=== PATIENT | male | born 1945 | race Asian ===

== ENCOUNTER → 2018-04-16 | Outpatient (CLI) | payer MEDICARE, OTHER | END | disposition home or self-care (01) | LOC: RAD 10:35 | PROVIDERS: ATTEND Family Medicine | DX: M25.551 Pain in right hip (principal) ==

== ENCOUNTER 2019-02-21 20:10 | Inpatient (IN) | payer MEDICARE, OTHER ==
[2019-02-20] MEDS: URSODIOL 300 MG CAPSULE PO SCH (23:40)
[~2019-02-21] VITALS: Ht 165.1 cm; Wt 79.9 kg
[2019-02-21] MEDS ORDERED: SODIUM CHLORIDE FLUSH 10ML SYR IVF ONE (21:00)
[2019-02-21] MEDS ORDERED: ACETAMINOPHEN 500 MG TABLET PO ONE (21:00)
[2019-02-21] MEDS ORDERED: SODIUM CHLORIDE 0.9% 1,000ML IVBOLUS ONE ×2 (21:00→22:00)
--- NOTE | 2019-02-21 21:00 | NUR ---
PT BIB FAMILY FOR 2 WEEK HX OF NONPRODUCTIVE COUGH AND FEVERS FOR UNKOWN AMOUNT OF TIME. PT HAS HX OF LIVER TRANSPLANT 3 YEARS AGO AND IS ON IMMUNOSUPRESSANTS. PT DENIES ABD PAIN, N/V/D, OR DYSURAI. PT ON MONITOR AND LABS DRAWN. REPORT TO QUIRINO Carrion RN.
[2019-02-21] MEDS ORDERED: ACETAMINOPHEN 500 MG TABLET ONE ×2 (21:07→21:41)
[2019-02-21 21:22] LABS: BASOPHILS # (AUTO) 0.02 x10^3/uL (0-0.1); BASOPHILS % (AUTO) 0 % (0-1); EOSINOPHILS # (AUTO) 0.01 x10^3/uL (0-0.4); EOSINOPHILS % (AUTO) 0 % (1-7); LYMPHOCYTES # (AUTO) 1.26 x10^3/uL (1-3.4); LYMPHOCYTES % (AUTO) 18 % (22-44); MD NO; MEAN CORPUSCULAR HEMOGLOBIN 24.5 pg (27.5-34.5); MEAN CORPUSCULAR HGB CONC 32.8 g/dL (33.2-36.2); MEAN CORPUSCULAR VOLUME 74.7 fL (81-97); MEAN PLATELET VOLUME 7.9 fL (7.4-10.4); MONOCYTES % (AUTO) 10 % (2-9); NEUTROPHILS # (AUTO) 5.19 x10^3/uL (1.8-6.8); NEUTROPHILS % (AUTO) 72 % (42-75); PLATELET COUNT 354 x10^3/uL (130-400); RED BLOOD COUNT 5.32 x10^6/uL (4.38-5.82); RED CELL DISTRIBUTION WIDTH 17.7 % (9.4-14.8)
[2019-02-21 21:26] LABS: INTERNATIONAL NORMALIZED RATIO 1.09 (0.93-1.1); PROTHROMBIN TIME 11.4 Seconds (9.6-11.5)
[2019-02-21 21:27] LABS: ALANINE AMINOTRANSFERASE 24 U/L (12-78); ALBUMIN 3.3 g/dL (3.4-5.0); ANION GAP 10 mmol/L (5-15); CALCIUM 8.4 mg/dL (8.5-10.1); CHLORIDE 101 mmol/L (98-107); CREATININE 1.71 mg/dL (0.7-1.3)
[2019-02-21 21:29] LABS: ALKALINE PHOSPHATASE 91 U/L (45-117); BILIRUBIN,TOTAL 1.4 mg/dL (0.2-1.0); TOTAL PROTEIN 8.2 g/dL (6.4-8.2)
[2019-02-21] MEDS ORDERED: CEFTRIAXONE PMX 1GM/50ML 50 ML IVPB ONE (21:30)
[2019-02-21] MEDS ORDERED: AZITHROMYCIN 500 MG in SODIUM CHLORIDE 0.9% 250 ML IVPB ONE (21:30)
[2019-02-21] MEDS ORDERED: OMEP-110 PO (21:32)
[2019-02-21] MEDS ORDERED: URSO300C27 PO (21:32)
[2019-02-21] MEDS ORDERED: CYAN100014 PO (21:32)
[2019-02-21] MEDS ORDERED: FINA5TAB4 PO (21:32)
[2019-02-21] MEDS ORDERED: GLUC1KIT SQ (21:32)
[2019-02-21] MEDS ORDERED: INSU100V8 SQ (21:32)
[2019-02-21] MEDS ORDERED: COLE1TAB2 PO (21:32)
[2019-02-21] MEDS ORDERED: CHOL500015 PO (21:32)
[2019-02-21] MEDS ORDERED: INSU100C SQ-INSULIN (21:32)
[2019-02-21] MEDS ORDERED: PREVAGEN PO (21:32)
[2019-02-21] MEDS ORDERED: CETI10TA24 PO (21:32)
[2019-02-21] MEDS ORDERED: ACET-1600 PO (21:32)
[2019-02-21] MEDS ORDERED: TACR0.5C4 PO (21:32)
[2019-02-21] MEDS ORDERED: MAGN500T PO (21:32)
[2019-02-21] MEDS ORDERED: PRED2.5T PO (21:32)
[2019-02-21] MEDS ORDERED: RESV250C2 PO (21:32)
[2019-02-21] MEDS ORDERED: ATOR20TA PO (21:32)
[2019-02-21] MEDS ORDERED: CEFTRIAXONE PMX 1GM/50ML 50 ML ONE (21:41)
--- NOTE | 2019-02-21 21:48 | NUR ---
Pt ambulated to bathroom, urine sample cup in hand.
--- NOTE | 2019-02-21 22:00 | NUR ---
IV ABX started, 2nd liter of NS started. Pt's urine sent to lab.
--- NOTE | 2019-02-21 22:04 | NUR ---
Telephone SBAR report given to RNKayla. Pt, , and son at bedside made aware of new room assignment.
[2019-02-21 22:11] LABS: MICROSCOPIC AUTO
[2019-02-21 22:16] LABS: CULTURE INDICATED? NO
[2019-02-21] MEDS ORDERED: VANCOMYCIN PMX 1GM/200ML 200 ML IV ONE (22:30)
[2019-02-21] MEDS ORDERED: DOCUSATE 100 MG CAPSULE PO PRN (22:30)
[2019-02-21] MEDS ORDERED: POLYETHYLENE GLYCOL 17 GM PACKET PO PRN (22:30)
[2019-02-21] MEDS ORDERED: morphine SULFATE 10 MG/ML, 1ML IVPush PRN (22:30)
[2019-02-21] MEDS ORDERED: OXYcodone IR 5MG TABLET PO PRN (22:30)
[2019-02-21] MEDS ORDERED: hydrALAzine 20 MG/ML, 1ML IVPush PRN (22:30)
[2019-02-21] MEDS ORDERED: VANCOMYCIN PER PHARMACY MC PRN (22:30)
[2019-02-21] MEDS ORDERED: ONDANSETRON ODT 4 MG PO PRN (22:30)
[2019-02-21] MEDS ORDERED: PROMETHAZINE 25 MG/ML, 1ML IM PRN (22:30)
[2019-02-21] MEDS ORDERED: BISACODYL 10 MG SUPP PR PRN (22:30)
[2019-02-21] MEDS ORDERED: ONDANSETRON 2MG/ML, 2ML IVPush PRN (22:30)
[2019-02-21 22:38] VITALS: BP 103/63
[2019-02-21 22:56] LABS: FREE T4 (FREE THYROXINE) 1.57 ng/dL (0.76-1.46); THYROID STIMULATING HORMONE 0.985 mIU/L (0.358-3.740)
[2019-02-21 23:04] LABS: HEMOGLOBIN A1C 6.4 % (4.2-6.3)
[2019-02-21] MEDS ORDERED: VANCOMYCIN 1,600 MG in SODIUM CHLORIDE 0.9% 250 ML IV ONE (23:30)
[2019-02-21] MEDS ORDERED: PHARMACOKINETIC MONITORING MC PRN (23:30)
[2019-02-21] MEDS: PIPERACILLIN/TAZO/PMX 3.375GM 50 ML IV SCH (23:40)
[2019-02-21] MEDS: MAGNESIUM OXIDE 400 MG TABLET PO SCH (23:40)
[2019-02-21] MEDS: ENOXAPARIN 40 MG/0.4 ML SQ SCH (23:40)
[2019-02-21] MEDS: URSODIOL 300 MG CAPSULE PO SCH (23:40)
[2019-02-21] MEDS: SODIUM CHLORIDE 0.9% 1,000 ML IV SCH (23:40)
[2019-02-21] MEDS: COLESTIPOL 1 GM TABLET PO SCH (23:40)
[2019-02-21] MEDS: ATORVASTATIN 20 MG TABLET PO SCH (23:40)
[2019-02-21] MEDS: TACROLIMUS 0.5 MG CAPSULE PO SCH (23:40)
[2019-02-21] MEDS: INSULIN GLARGINE 100 UNITS/ML, PEN SQ-INSULIN SCH (23:41)
[2019-02-22 00:42] LABS: RAPID INFLUENZA A Negative (Negative); RAPID INFLUENZA B Negative (Negative)
[2019-02-22] MEDS ORDERED: AZITHROMYCIN 500 MG in SODIUM CHLORIDE 0.9% 250 ML IV ONE (01:30)
[2019-02-22 02:07] VITALS: BP 119/75
[2019-02-22] MEDS ORDERED: ALBUTEROL/IPRATROPIUM 2.5MG/0.5MG, 3 ML ONE (02:24)
[2019-02-22] MEDS: ALBUTEROL/IPRATROPIUM 2.5MG/0.5MG, 3 ML NPPB SCH ×3 (02:35→18:34)
[2019-02-22] MEDS: PIPERACILLIN/TAZO/PMX 3.375GM 50 ML IV SCH ×4 (05:59→23:35)
[2019-02-22 06:22] LABS: BASOPHILS # (AUTO) 0.03 x10^3/uL (0-0.1); BASOPHILS % (AUTO) 0 % (0-1); EOSINOPHILS # (AUTO) 0.01 x10^3/uL (0-0.4); EOSINOPHILS % (AUTO) 0 % (1-7); LYMPHOCYTES # (AUTO) 1.53 x10^3/uL (1-3.4); LYMPHOCYTES % (AUTO) 20 % (22-44); MD NO; MEAN CORPUSCULAR HEMOGLOBIN 24.2 pg (27.5-34.5); MEAN CORPUSCULAR VOLUME 75.4 fL (81-97); MEAN PLATELET VOLUME 7.9 fL (7.4-10.4); MONOCYTES # (AUTO) 0.68 x10^3/uL (0.2-0.8); MONOCYTES % (AUTO) 9 % (2-9); NEUTROPHILS # (AUTO) 5.39 x10^3/uL (1.8-6.8); NEUTROPHILS % (AUTO) 71 % (42-75); PLATELET COUNT 333 x10^3/uL (130-400); RED BLOOD COUNT 4.87 x10^6/uL (4.38-5.82); RED CELL DISTRIBUTION WIDTH 17.8 % (9.4-14.8)
[2019-02-22 06:34] LABS: ALANINE AMINOTRANSFERASE 20 U/L (12-78); ALBUMIN 2.8 g/dL (3.4-5.0); ANION GAP 9 mmol/L (5-15); CALCIUM 7.6 mg/dL (8.5-10.1); CHLORIDE 108 mmol/L (98-107)
[2019-02-22 06:37] LABS: ALKALINE PHOSPHATASE 79 U/L (45-117); BILIRUBIN,TOTAL 1.1 mg/dL (0.2-1.0); CHOLESTEROL, TOTAL 109 mg/dL (140-239); CREATININE 1.41 mg/dL (0.7-1.3); HDL CHOL % 20 % (26-37); HDL CHOLESTEROL (DIRECT) 22 mg/dL (40-60); LDL CHOLESTEROL,CALCULATED 50 mg/dL (54-169); LDL/HDL RATIO 2.3 (0.5-3.0); TOTAL PROTEIN 7.2 g/dL (6.4-8.2); TRIGLYCERIDES 186 mg/dL (50-200); VLDL CHOLESTEROL 37 mg/dL (0-25)
[2019-02-22 07:11] VITALS: BP 122/75
[2019-02-22] MEDS: INSULIN LISPRO 100 UNITS/ML, PEN SQ-INSULIN SCH ×4 (08:59→20:56)
[2019-02-22] MEDS: COLESTIPOL 1 GM TABLET PO SCH ×2 (08:59→21:55)
[2019-02-22] MEDS: OMEPRAZOLE 20 MG CAPSULE.DR PO SCH (09:00)
[2019-02-22] MEDS ORDERED: RESVERATROL 500 MG PO SCH (09:00)
[2019-02-22] MEDS ORDERED: PREVAGEN PO SCH (09:00)
[2019-02-22] MEDS: MAGNESIUM OXIDE 400 MG TABLET PO SCH (09:01)
[2019-02-22] MEDS: CHOLECALCIFEROL 5,000u TAB PO SCH (09:01)
[2019-02-22] MEDS: CYANOCOBALAMIN 1,000 MCG TABLET PO SCH (09:01)
[2019-02-22] MEDS: SODIUM CHLORIDE 0.9% 1,000 ML IV SCH (09:02)
[2019-02-22] MEDS: FINASTERIDE 5 MG TABLET PO SCH (09:13)
[2019-02-22] MEDS ORDERED: TACROLIMUS 0.5 MG CAPSULE PO ONE (09:30)
[2019-02-22] MEDS ORDERED: URSODIOL 300 MG CAPSULE PO ONE (09:30)
[2019-02-22] MEDS ORDERED: POTASSIUM CHLORIDE 40 MEQ in SODIUM CHLORIDE 0.9% 500 ML IV ONE (10:00)
[2019-02-22 13:21] VITALS: BP 125/69
[2019-02-22 15:14] LABS: CLOSTRIDIUM DIFFICILE ANTIGEN NEGATIVE; CLOSTRIDIUM DIFFICILE TOXIN NEGATIVE (Negative)
[2019-02-22] MEDS ORDERED: LOPERAMIDE 2 MG CAPSULE PO ONE (16:00)
[2019-02-22 20:16] VITALS: BP 98/61
[2019-02-22] MEDS: INSULIN GLARGINE 100 UNITS/ML, PEN SQ-INSULIN SCH (20:55)
[2019-02-22] MEDS: URSODIOL 300 MG CAPSULE PO SCH (20:55)
[2019-02-22] MEDS: TACROLIMUS 0.5 MG CAPSULE PO SCH (20:55)
[2019-02-22] MEDS: ENOXAPARIN 40 MG/0.4 ML SQ SCH (23:35)
[2019-02-23] MEDS: VANCOMYCIN 1,600 MG in SODIUM CHLORIDE 0.9% 250 ML IV SCH (00:59)
[2019-02-23] MEDS: ALBUTEROL/IPRATROPIUM 2.5MG/0.5MG, 3 ML NPPB SCH ×5 (02:22→19:33)
[2019-02-23 02:43] VITALS: BP 111/69
[2019-02-23] MEDS: PIPERACILLIN/TAZO/PMX 3.375GM 50 ML IV SCH ×3 (06:00→18:49)
[2019-02-23 08:09] VITALS: BP 118/80
[2019-02-23] MEDS: INSULIN LISPRO 100 UNITS/ML, PEN SQ-INSULIN SCH ×4 (08:15→21:24)
[2019-02-23] MEDS: CYANOCOBALAMIN 1,000 MCG TABLET PO SCH (09:08)
[2019-02-23] MEDS: MAGNESIUM OXIDE 400 MG TABLET PO SCH (09:09)
[2019-02-23] MEDS: OMEPRAZOLE 20 MG CAPSULE.DR PO SCH (09:09)
[2019-02-23] MEDS: COLESTIPOL 1 GM TABLET PO SCH ×2 (09:09→22:15)
[2019-02-23] MEDS: TACROLIMUS 0.5 MG CAPSULE PO SCH ×2 (09:09→21:13)
[2019-02-23] MEDS: CHOLECALCIFEROL 5,000u TAB PO SCH (09:09)
[2019-02-23] MEDS: URSODIOL 300 MG CAPSULE PO SCH ×2 (09:09→21:13)
[2019-02-23] MEDS: FINASTERIDE 5 MG TABLET PO SCH (09:10)
[2019-02-23 12:27] LABS: ANION GAP 11 mmol/L (5-15); CALCIUM 8.3 mg/dL (8.5-10.1); CHLORIDE 108 mmol/L (98-107); CREATININE 1.26 mg/dL (0.7-1.3)
[2019-02-23 16:41] VITALS: BP 112/74
[2019-02-23] MEDS: DILTIAZEM 30 MG TABLET PO SCH ×2 (17:28→21:13)
[2019-02-23 20:44] VITALS: BP 111/68
[2019-02-23] MEDS: APIXABAN 5 MG TABLET PO SCH (21:13)
[2019-02-23] MEDS: ATORVASTATIN 20 MG TABLET PO SCH (21:13)
[2019-02-23] MEDS: INSULIN GLARGINE 100 UNITS/ML, PEN SQ-INSULIN SCH (21:23)
[2019-02-24] MEDS: PIPERACILLIN/TAZO/PMX 3.375GM 50 ML IV SCH ×4 (00:05→17:37)
[2019-02-24] MEDS: VANCOMYCIN 1,600 MG in SODIUM CHLORIDE 0.9% 250 ML IV SCH (01:53)
[2019-02-24 03:15] VITALS: BP 110/75
[2019-02-24] MEDS: DILTIAZEM 30 MG TABLET PO SCH ×2 (03:32→09:58)
[2019-02-24 05:16] LABS: CHLORIDE 111 mmol/L (98-107)
[2019-02-24 05:19] LABS: MEAN CORPUSCULAR HGB CONC 31.3 g/dL (33.2-36.2); MEAN CORPUSCULAR VOLUME 76.8 fL (81-97); PLATELET COUNT 401 x10^3/uL (130-400); RED CELL DISTRIBUTION WIDTH 17.9 % (9.4-14.8)
[2019-02-24 05:21] LABS: ANION GAP 10 mmol/L (5-15); CALCIUM 8.1 mg/dL (8.5-10.1); CREATININE 1.44 mg/dL (0.7-1.3)
[2019-02-24] MEDS: ALBUTEROL/IPRATROPIUM 2.5MG/0.5MG, 3 ML NPPB SCH ×3 (05:21→15:55)
[2019-02-24 05:43] LABS: MD YES
[2019-02-24 05:46] LABS: EOS#(MANUAL) 0.37 x10^3/uL (0.0-0.4); EOS% (MANUAL) 8 % (1-7); LYMPH#(MANUAL) 1.52 x10^3/uL (1-3.4); LYMPHS% (MANUAL) 33 % (22-44); MONOS#(MANUAL) 0.41 x10^3/uL (0.3-2.7); MONOS% (MANUAL) 9 % (2-9); SEGS% (MANUAL) 50 % (42-75)
[2019-02-24 05:48] LABS: ANISOCYTOSIS 1+; HYPOCHROMIA 1+; MICROCYTOSIS 1+; POLYCHROMASIA 1+
[2019-02-24 05:49] LABS: <PLATELET ESTIMATE> ADEQUATE; <PLT MORPHOLOGY> NORMAL PLT MORPH; OVALOCYTES 1+
[2019-02-24 07:37] VITALS: BP 129/82
[2019-02-24] MEDS: INSULIN LISPRO 100 UNITS/ML, PEN SQ-INSULIN SCH ×3 (08:05→16:00)
[2019-02-24] MEDS: URSODIOL 300 MG CAPSULE PO SCH (09:16)
[2019-02-24] MEDS: FINASTERIDE 5 MG TABLET PO SCH (09:16)
[2019-02-24] MEDS: OMEPRAZOLE 20 MG CAPSULE.DR PO SCH (09:16)
[2019-02-24] MEDS: COLESTIPOL 1 GM TABLET PO SCH (09:16)
[2019-02-24] MEDS: APIXABAN 5 MG TABLET PO SCH (09:17)
[2019-02-24] MEDS: MAGNESIUM OXIDE 400 MG TABLET PO SCH (09:17)
[2019-02-24] MEDS: CYANOCOBALAMIN 1,000 MCG TABLET PO SCH (09:17)
[2019-02-24] MEDS: CHOLECALCIFEROL 5,000u TAB PO SCH (09:17)
[2019-02-24] MEDS: TACROLIMUS 0.5 MG CAPSULE PO SCH (09:17)
[2019-02-24 12:52] VITALS: BP 121/81
[2019-02-24] MEDS ORDERED: DILTIAZEM 60 MG TABLET PO SCH (15:30)
[2019-02-24] MEDS ORDERED: AMOX1TAB64 PO (15:38)
[2019-02-24] MEDS ORDERED: APIX5TAB PO (15:38)
[2019-02-24] MEDS ORDERED: DILT240C55 PO (15:38)
[2019-02-24] MEDS ORDERED: FURO20TA3 PO (15:38)
[2019-02-24] MEDS ORDERED: IPRA4AER INH ×3 (15:38→16:16)
[2019-02-25] MEDS ORDERED: DILTIAZEM 240 MG CAP.ER.24H PO SCH (09:00)
== END 2019-02-24 17:51 | disposition home or self-care (01) | DRG 871 ==
LOC: ED 21:57 → EDIP 22:00 → 4EST 22:37
PROVIDERS: ADMIT Internal Medicine; ATTEND Internal Medicine
DX: A41.9 Sepsis, unspecified organism (principal); G93.41 Metabolic encephalopathy; N17.0 Acute kidney failure with tubular necrosis; I21.A1 Myocardial infarction type 2; J15.211 Pneumonia due to Methicillin susceptible Staphylococcus aureus; J96.00 Acute respiratory failure, unspecified whether with hypoxia or hypercapnia; D68.59 Other primary thrombophilia; E44.0 Moderate protein-calorie malnutrition; E87.1 Hypo-osmolality and hyponatremia; Z94.4 Liver transplant status; E11.9 Type 2 diabetes mellitus without complications; E78.5 Hyperlipidemia, unspecified; I48.91 Unspecified atrial fibrillation; I77.810 Thoracic aortic ectasia; K21.9 Gastro-esophageal reflux disease without esophagitis; K76.0 Fatty (change of) liver, not elsewhere classified; I08.0 Rheumatic disorders of both mitral and aortic valves; N40.0 Benign prostatic hyperplasia without lower urinary tract symptoms; Z79.4 Long term (current) use of insulin; Z68.29 Body mass index [BMI] 29.0-29.9, adult; Z82.49 Family history of ischemic heart disease and other diseases of the circulatory system; Z87.891 Personal history of nicotine dependence
CPT/HCPCS: 36415; 71045; 80048; 80053; 80061; 81001; 82962; 83036; 83605; 83735; 84100; 84145; 84439; 84443; 84484; 85025; 85610; 85730; 87040; 87070; 87077; 87186; 87205; 87324; 87400; 93005; 93306; 94640; 96374; 99291; G0378; J0456; J0696; J1650; J2543; J3370; J3480; J7507; J7620; J1815; J7030; J7040; J7050; J7512

== ENCOUNTER 2019-05-06 08:02 | Outpatient (CLI) | payer MEDICARE, OTHER ==
[~2019-05-06 08:02] MED LIST: ACET-1600 PO; AMOX1TAB64 PO; APIX5TAB PO; ATOR20TA PO; CETI10TA24 PO; CHOL500015 PO; COLE1TAB2 PO; CYAN100014 PO; DILT240C55 PO; FINA5TAB4 PO; FURO20TA3 PO; GLUC1KIT SQ; INSU100C SQ-INSULIN; INSU100V8 SQ; IPRA4AER INH; MAGN500T PO; OMEP-110 PO; PRED2.5T PO; PREVAGEN PO; REGADENOSON 0.4 MG/5 ML SYRINGE ONE; RESV250C2 PO; TACR0.5C4 PO; URSO300C27 PO
== END 2019-05-06 23:59 | disposition home or self-care (01) ==
LOC: CFH 08:02
PROVIDERS: ATTEND Internal Medicine Cardiovascular Disease
DX: I21.4 Non-ST elevation (NSTEMI) myocardial infarction (principal)
CPT/HCPCS: 78452; 93017; A9502; J2785

== ENCOUNTER 2020-08-17 10:00 | Observation (INO) | payer MEDICARE, OTHER ==
[~2020-08-17] VITALS: Ht 167.6 cm; Wt 78.0 kg
[~2020-08-17 10:00] MED LIST changes: -CETI10TA24 PO; +CETI10TA76 PO; -REGADENOSON 0.4 MG/5 ML SYRINGE ONE
[2020-08-17 11:30] LABS: BASOPHILS % (AUTO) 1 % (0-1); EOSINOPHILS % (AUTO) 2 % (1-7); LYMPHOCYTES % (AUTO) 26 % (22-44); MEAN CORPUSCULAR HEMOGLOBIN 24.9 pg (27.5-34.5); MEAN CORPUSCULAR HGB CONC 31.3 g/dL (33.2-36.2); MONOCYTES % (AUTO) 10 % (2-9); NEUTROPHILS % (AUTO) 63 % (42-75); PLATELET COUNT 394 x10^3/uL (130-400); RED CELL DISTRIBUTION WIDTH 17.5 % (9.4-14.8)
[2020-08-17 11:31] LABS: MD NO
[2020-08-17 11:41] LABS: ANION GAP 5 mmol/L (5-15); CALCIUM 8.3 mg/dL (8.5-10.1); CHLORIDE 111 mmol/L (98-107); CREATININE 1.37 mg/dL (0.7-1.3)
[2020-08-17 11:42] LABS: ALBUMIN 3.5 g/dL (3.4-5.0)
[2020-08-17] MEDS ORDERED: ACETAMINOPHEN 325 MG TABLET PO PRN (16:30)
[2020-08-17] MEDS ORDERED: DOCUSATE 100 MG CAPSULE PO PRN (16:30)
[2020-08-17] MEDS ORDERED: LABETALOL 5MG/ML, 20ML IVPush PRN (16:30)
[2020-08-17] MEDS ORDERED: MELATONIN 5 MG TABLET PO PRN (16:30)
[2020-08-17] MEDS ORDERED: ONDANSETRON ODT 4 MG PO PRN (16:30)
[2020-08-17 17:05] VITALS: BP 153/89
[2020-08-17] MEDS: ASPIRIN 81 MG TABLET EC PO SCH (17:30)
[2020-08-17 19:59] VITALS: BP 121/85
[2020-08-17] MEDS ORDERED: INSULIN GLARGINE 100 UNITS/ML, PEN SQ-INSULIN SCH (21:00)
[2020-08-17] MEDS: INSULIN LISPRO 100 UNITS/ML, PEN SQ-INSULIN SCH (21:00)
[2020-08-17] MEDS ORDERED: ATORVASTATIN 20 MG TABLET PO SCH (21:00)
[2020-08-17] MEDS ORDERED: INSULIN GLARGINE 100 UNITS/ML, PEN SQ-INSULIN ONE (21:00)
[2020-08-17] MEDS: COLESTIPOL 1 GM TABLET PO SCH (21:23)
[2020-08-17] MEDS: URSODIOL 300 MG CAPSULE PO SCH (21:23)
[2020-08-17] MEDS: TACROLIMUS 0.5 MG CAPSULE PO SCH (21:23)
[2020-08-17] MEDS: HEPARIN 5,000 UNITS/ML, 1ML SQ SCH (21:24)
[2020-08-17] MEDS: SODIUM CHLORIDE 0.9% 1,000 ML IV SCH (21:40)
[2020-08-18 01:55] VITALS: BP 129/86
[2020-08-18] MEDS: ASPIRIN 81 MG TABLET EC PO SCH (05:27)
[2020-08-18] MEDS: HEPARIN 5,000 UNITS/ML, 1ML SQ SCH ×2 (05:28→14:06)
[2020-08-18 06:18] LABS: HCT (SEDRATE) 41.7 % (39.2-51.8)
[2020-08-18 06:22] LABS: ALBUMIN 3.3 g/dL (3.4-5.0); ANION GAP 6 mmol/L (5-15); CALCIUM 8.2 mg/dL (8.5-10.1); CHLORIDE 109 mmol/L (98-107)
[2020-08-18 06:31] LABS: ALANINE AMINOTRANSFERASE 19 U/L (12-78); ALKALINE PHOSPHATASE 86 U/L (45-117); BILIRUBIN,TOTAL 1.4 mg/dL (0.2-1.0); CHOLESTEROL, TOTAL 155 mg/dL (140-239); HDL CHOL % 25 % (26-37); HDL CHOLESTEROL (DIRECT) 39 mg/dL (40-60); TOTAL PROTEIN 6.8 g/dL (6.4-8.2); TRIGLYCERIDES 435 mg/dL (50-200)
[2020-08-18 06:33] LABS: BASOPHILS % (AUTO) 1 % (0-1); EOSINOPHILS % (AUTO) 5 % (1-7); LYMPHOCYTES % (AUTO) 45 % (22-44); MEAN CORPUSCULAR HEMOGLOBIN 25.1 pg (27.5-34.5); MEAN CORPUSCULAR HGB CONC 31.6 g/dL (33.2-36.2); MEAN PLATELET VOLUME 7.4 fL (7.4-10.4); MONOCYTES % (AUTO) 14 % (2-9); NEUTROPHILS % (AUTO) 36 % (42-75); PLATELET COUNT 379 x10^3/uL (130-400); RED BLOOD COUNT 5.26 x10^6/uL (4.38-5.82); RED CELL DISTRIBUTION WIDTH 17.6 % (9.4-14.8)
[2020-08-18 06:42] LABS: MD NO
[2020-08-18] MEDS: INSULIN LISPRO 100 UNITS/ML, PEN SQ-INSULIN SCH ×3 (07:00→16:55)
[2020-08-18] MEDS ORDERED: PANTOPRAZOLE 40MG TABLET PO SCH (07:30)
[2020-08-18] MEDS: SODIUM CHLORIDE 0.9% 1,000 ML IV SCH (07:46)
[2020-08-18 08:03] VITALS: BP 118/81
[2020-08-18] MEDS ORDERED: CYANOCOBALAMIN 1,000 MCG TABLET PO SCH (09:00)
[2020-08-18] MEDS ORDERED: CHOLECALCIFEROL 5,000u TAB PO SCH (09:00)
[2020-08-18] MEDS ORDERED: FINASTERIDE 5 MG TABLET PO SCH (09:00)
[2020-08-18] MEDS ORDERED: RESVERATROL 500 MG PO SCH (09:00)
[2020-08-18] MEDS ORDERED: PREVAGEN PO SCH (09:00)
[2020-08-18] MEDS: URSODIOL 300 MG CAPSULE PO SCH (09:35)
[2020-08-18] MEDS: COLESTIPOL 1 GM TABLET PO SCH (09:39)
[2020-08-18] MEDS: TACROLIMUS 0.5 MG CAPSULE PO SCH (09:39)
[2020-08-18] MEDS ORDERED: COLE1TAB2 PO (13:45)
[2020-08-18] MEDS ORDERED: ASPI81TA45 PO (13:45)
[2020-08-18 14:53] VITALS: BP 123/87
== END 2020-08-18 18:49 | disposition home or self-care (01) ==
LOC: ED 12:57 → SUATTDRO 15:44 → INTOOBSV 17:28 → EDIP 17:28 → 5SO 17:47
PROVIDERS: ADMIT Internal Medicine; ATTEND Internal Medicine
DX: R61 Generalized hyperhidrosis (principal); R47.89 Other speech disturbances; E11.9 Type 2 diabetes mellitus without complications; E78.5 Hyperlipidemia, unspecified; K21.9 Gastro-esophageal reflux disease without esophagitis; N40.0 Benign prostatic hyperplasia without lower urinary tract symptoms; D84.9 Immunodeficiency, unspecified; E78.1 Pure hyperglyceridemia; Z87.19 Personal history of other diseases of the digestive system; Z79.899 Other long term (current) drug therapy; Z87.891 Personal history of nicotine dependence; Z94.4 Liver transplant status
CPT/HCPCS: 36415; 70450; 70551; 71046; 80048; 80053; 80061; 82040; 82962; 83036; 83735; 84100; 84443; 85025; 85651; 92523; 93005; 93306; 93880; 96360; 96361; 96372; 97161; 97165; 99285; G0378; J1644; J1815; J7030; J7507; J7512

== ENCOUNTER 2020-10-22 06:53 | Outpatient (CLI) | payer MEDICARE, BC ==
[~2020-10-22 06:53] MED LIST changes: +ASPI81TA45 PO
[2020-10-22] MEDS ORDERED: FENTANYL PF 100 MCG/2ML ONE (07:47)
[2020-10-22] MEDS ORDERED: FLUMAZENIL 0.1 MG/1 ML, 5ML ONE (07:47)
[2020-10-22] MEDS ORDERED: MIDAZOLAM 1 MG/ML, 5ML ONE ×2 (07:47)
[2020-10-22] MEDS ORDERED: NALOXONE 1 MG/ML, 2ML ONE (07:47)
[2020-10-22] MEDS ORDERED: GADOTERATE 10 MMOL/20 ML VIAL ONE (10:16)
== END 2020-10-22 23:59 | disposition home or self-care (01) ==
LOC: RAD 06:53
PROVIDERS: ATTEND Student in an Organized Health Care Education/Training Program
DX: K86.89 Other specified diseases of pancreas (principal); E11.9 Type 2 diabetes mellitus without complications; Z85.05 Personal history of malignant neoplasm of liver; Z90.49 Acquired absence of other specified parts of digestive tract; Z94.4 Liver transplant status
CPT/HCPCS: 74183; 99156; 99157; A9575; J2250; J3010; J2310

== ENCOUNTER → 2020-11-10 | Day surgery (SDC) | payer MEDICARE, BC ==
[~2020-11-10] VITALS: Ht 165.1 cm; Wt 77.3 kg
[~2020-11-10] MED LIST changes: +LIDOCAINE 2%, 20ML ONE
== END | disposition home or self-care (01) ==
LOC: CACL 11:29
PROVIDERS: ATTEND Internal Medicine Cardiovascular Disease
DX: I49.8 Other specified cardiac arrhythmias (principal); I63.9 Cerebral infarction, unspecified; I48.91 Unspecified atrial fibrillation; I25.2 Old myocardial infarction; E11.9 Type 2 diabetes mellitus without complications; Z79.4 Long term (current) use of insulin; Z79.82 Long term (current) use of aspirin; Z79.899 Other long term (current) drug therapy; Z88.5 Allergy status to narcotic agent; Z88.8 Allergy status to other drugs, medicaments and biological substances
CPT/HCPCS: 33285; C1764

== ENCOUNTER 2021-02-19 19:33 | Inpatient (IN) | payer MEDICARE, BC ==
[~2021-02-19] VITALS: Ht 167.6 cm; Wt 75.2 kg
[~2021-02-19 19:33] MED LIST changes: +DILT120C11 PO; +FURO-93 PO; -LIDOCAINE 2%, 20ML ONE; +MAGNESIUM PO; +METO25TA35 PO
--- NOTE | 2021-02-19 21:05 | NUR ---
ASSUMED CARE OF PATIENT. PATIENT REPORTS HE WAS [facility] AND HE CHECKED HIMSELF OUT. VS STABLE. NO ACUTE DISTRESS NOTED. AT BEDSIDE. WILL CONTINUE TO MONITOR.
--- NOTE | 2021-02-19 21:57 | NUR ---
PT RESTING IN ROOM. VS STABLE. NO ACUTE DISTRESS NOTED. PT TO BE AN ADMIT
[2021-02-19] MEDS ORDERED: ONDANSETRON ODT 4 MG PO PRN (22:30)
[2021-02-19] MEDS ORDERED: DOCUSATE 100 MG CAPSULE PO PRN (22:30)
[2021-02-19] MEDS ORDERED: ATORVASTATIN 20 MG TABLET PO SCH (22:30)
[2021-02-19] MEDS ORDERED: PROMETHAZINE 25 MG/ML, 1ML IM PRN (22:30)
[2021-02-19] MEDS ORDERED: hydrALAzine 20 MG/ML, 1ML IVPush PRN (22:30)
[2021-02-19] MEDS ORDERED: BISACODYL 10 MG SUPP PR PRN (22:30)
[2021-02-19] MEDS ORDERED: INSULIN GLARGINE 100 UNITS/ML, PEN SQ-INSULIN SCH (22:30)
[2021-02-19] MEDS ORDERED: ACETAMINOPHEN 325 MG TABLET PO PRN (22:30)
[2021-02-19] MEDS ORDERED: ONDANSETRON 2MG/ML, 2ML IVPush PRN (22:30)
[2021-02-19] MEDS ORDERED: FINASTERIDE 5 MG TABLET PO SCH (22:30)
[2021-02-19] MEDS ORDERED: POLYETHYLENE GLYCOL 17 GM PACKET PO PRN (22:30)
[2021-02-19 23:56] VITALS: BP 130/77
[2021-02-20] MEDS: TACROLIMUS 0.5 MG CAPSULE PO SCH ×2 (00:37→08:19)
[2021-02-20] MEDS: COLESTIPOL 1 GM TABLET PO SCH ×2 (00:38→08:18)
[2021-02-20] MEDS: APIXABAN 5 MG TABLET PO SCH ×2 (00:38→08:19)
[2021-02-20] MEDS: INSULIN LISPRO 100 UNITS/ML, PEN SQ-INSULIN SCH ×3 (00:39→11:49)
[2021-02-20] MEDS ORDERED: METOPROLOL TARTRATE 50 MG TAB PO SCH (06:00)
[2021-02-20 07:15] VITALS: BP 111/78
[2021-02-20] MEDS ORDERED: CHOLECALCIFEROL 5,000u TAB PO SCH (09:00)
[2021-02-20] MEDS ORDERED: RESVERATROL 500 MG PO SCH (09:00)
[2021-02-20] MEDS ORDERED: FUROSEMIDE 20 MG TABLET PO SCH (09:00)
[2021-02-20] MEDS ORDERED: OMEPRAZOLE 20 MG CAPSULE.DR PO SCH (09:00)
[2021-02-20] MEDS ORDERED: DILTIAZEM 120 MG CAP.ER.12H PO SCH (09:00)
[2021-02-20] MEDS ORDERED: URSODIOL 300 MG CAPSULE PO SCH (09:00)
[2021-02-20] MEDS ORDERED: CYANOCOBALAMIN 1,000 MCG TABLET PO SCH (09:00)
[2021-02-20 14:21] VITALS: BP 114/71
[2021-02-20] MEDS ORDERED: METO25TA35 PO (15:11)
[2021-02-20] MEDS ORDERED: DILT120C11 PO (15:11)
[2021-02-20] MEDS ORDERED: FURO-93 PO (16:44)
== END 2021-02-20 16:54 | disposition home health service (06) | DRG 281 ==
LOC: ED 20:56 → EDIP 22:19 → 4NW 23:40
PROVIDERS: ADMIT Internal Medicine; ATTEND Internal Medicine
DX: I48.91 Unspecified atrial fibrillation (principal); I21.A1 Myocardial infarction type 2; D68.59 Other primary thrombophilia; D84.9 Immunodeficiency, unspecified; G93.40 Encephalopathy, unspecified; N17.9 Acute kidney failure, unspecified; Z94.4 Liver transplant status; E11.649 Type 2 diabetes mellitus with hypoglycemia without coma; E78.5 Hyperlipidemia, unspecified; E87.6 Hypokalemia; I10 Essential (primary) hypertension; K21.9 Gastro-esophageal reflux disease without esophagitis; N40.0 Benign prostatic hyperplasia without lower urinary tract symptoms; R62.7 Adult failure to thrive; Z79.01 Long term (current) use of anticoagulants; Z79.4 Long term (current) use of insulin; Z82.49 Family history of ischemic heart disease and other diseases of the circulatory system; Z86.73 Personal history of transient ischemic attack (TIA), and cerebral infarction without residual deficits; Z87.891 Personal history of nicotine dependence; Z79.899 Other long term (current) drug therapy; Z95.5 Presence of coronary angioplasty implant and graft; Z88.5 Allergy status to narcotic agent
CPT/HCPCS: 82962; 99285; G0378; J7507; J1815; J7512

== ENCOUNTER 2021-03-03 10:55 | Day surgery (SDC) | payer MEDICARE, BC ==
[2021-03-02 12:24] LABS: BASOPHILS % (AUTO) 0 % (0-1); EOSINOPHILS % (AUTO) 1 % (1-7); LYMPHOCYTES % (AUTO) 25 % (22-44); MEAN CORPUSCULAR HEMOGLOBIN 26.5 pg (27.5-34.5); MEAN CORPUSCULAR HGB CONC 32.5 g/dL (33.2-36.2); MEAN PLATELET VOLUME 6.9 fL (7.4-10.4); MONOCYTES % (AUTO) 10 % (2-9); NEUTROPHILS % (AUTO) 64 % (42-75); PLATELET COUNT 578 x10^3/uL (130-400); RED BLOOD COUNT 4.77 x10^6/uL (4.38-5.82); RED CELL DISTRIBUTION WIDTH 18.8 % (9.4-14.8)
[2021-03-02 12:27] LABS: MD NO
[2021-03-02 12:34] LABS: INTERNATIONAL NORMALIZED RATIO 1.07 (0.93-1.1); PROTHROMBIN TIME 11.4 Seconds (9.6-11.5)
[2021-03-02 12:36] LABS: ALANINE AMINOTRANSFERASE 16 U/L (12-78); ALBUMIN 3.3 g/dL (3.4-5.0); ANION GAP 5 mmol/L (5-15); CALCIUM 8.2 mg/dL (8.5-10.1); CHLORIDE 104 mmol/L (98-107); CREATININE 1.26 mg/dL (0.7-1.3)
[2021-03-02 12:38] LABS: ALKALINE PHOSPHATASE 170 U/L (45-117); BILIRUBIN,TOTAL 1.1 mg/dL (0.2-1.0); TOTAL PROTEIN 7.2 g/dL (6.4-8.2)
[~2021-03-03] VITALS: Ht 167.6 cm; Wt 80.3 kg
[~2021-03-03 10:55] MED LIST changes: +BUPIVACAINE LIPOSOME/PF 10ML INFIL ONE; +CETI10CA PO; +OXYC5TAB98 PO
[2021-03-03] MEDS ORDERED: TRANEXAMIC ACID 100 MG/ML, 10ML ONE ×2 (11:43→15:18)
[2021-03-03] MEDS ORDERED: CLINDAMYCIN 150 MG/ML, 6ML ONE (12:02)
[2021-03-03] MEDS ORDERED: VANCOMYCIN 1,000 MG ONE (12:02)
[2021-03-03 13:16] VITALS: BP 119/79
[2021-03-03] MEDS ORDERED: FENTANYL PF 100 MCG/2ML ONE (13:16)
[2021-03-03] MEDS ORDERED: MIDAZOLAM 1 MG/ML, 2ML ONE (13:16)
[2021-03-03] MEDS ORDERED: DILT120C80 PO (13:23)
[2021-03-03] MEDS ORDERED: METO25TA35 PO (13:23)
[2021-03-03] MEDS ORDERED: ACETAMINOPHEN 325 MG TABLET PO PRN (13:30)
[2021-03-03] MEDS ORDERED: OXYcodone 5 MG/5 ML ORAL.SOL UDC PO PRN (13:30)
[2021-03-03] MEDS ORDERED: MIDAZOLAM 1 MG/ML, 2ML IV PRN (13:30)
[2021-03-03] MEDS ORDERED: PROMETHAZINE 25 MG/ML, 1ML IVPush PRN (13:30)
[2021-03-03] MEDS ORDERED: LACTATED RINGERS 1,000 ML IV SCH (13:30)
[2021-03-03] MEDS ORDERED: ALBUTEROL SULFATE 2.5 MG/3 ML NPPB PRN (13:30)
[2021-03-03] MEDS ORDERED: LABETALOL 5MG/ML, 20ML IV PRN (13:30)
[2021-03-03] MEDS ORDERED: CHLORHEXIDINE 15 ML UDC PO ONE (13:30)
[2021-03-03] MEDS ORDERED: MEPERIDINE/PF 25MG/0.5ML IVPush PRN (13:30)
[2021-03-03] MEDS ORDERED: HYDROmorphone 1 MG/ML, 1ML INJ IVPush PRN (13:30)
[2021-03-03] MEDS ORDERED: FENTANYL PF 100 MCG/2ML IV PRN (13:30)
[2021-03-03] MEDS ORDERED: DEXTROSE 50%, 50ML SYRINGE ONE (13:38)
[2021-03-03] MEDS ORDERED: DEXTROSE 50%, 50ML SYRINGE IVPush ONE (14:00)
[2021-03-03] MEDS ORDERED: PROPOFOL 50 ML ONE (14:05)
[2021-03-03] MEDS ORDERED: DEXAMETHASONE 4 MG/ML, 1ML ONE (14:59)
[2021-03-03] MEDS ORDERED: BUPIVACAINE/PF 0.5% ONE (14:59)
[2021-03-03] MEDS ORDERED: ONDANSETRON 2MG/ML, 2ML ONE (14:59)
[2021-03-03] MEDS ORDERED: GLYCOPYRROLATE 0.2MG/1ML, 5ML ONE (14:59)
[2021-03-03] MEDS ORDERED: ROCURONIUM 10MG/ML,5ML ONE (14:59)
[2021-03-03] MEDS ORDERED: CEFAZOLIN 1,000 MG ONE (14:59)
[2021-03-03] MEDS ORDERED: PROPOFOL 10 MG/ML, 20ML ONE (14:59)
[2021-03-03] MEDS ORDERED: NEOSTIGMINE 1 MG/ML, 10ML ONE (14:59)
[2021-03-03] MEDS ORDERED: D5%-0.9% NACL 1,000 ML IV SCH (17:00)
[2021-03-03] MEDS ORDERED: HYDROmorphone 2 MG/ML, 1ML IVPush PRN (19:00)
[2021-03-03] MEDS ORDERED: OXYcodone IR 5MG TABLET PO PRN (19:00)
[2021-03-03] MEDS ORDERED: CETIRIZINE 10 MG TABLET PO PRN (19:00)
[2021-03-03] MEDS ORDERED: ONDANSETRON 2MG/ML, 2ML IV PRN (19:00)
[2021-03-03] MEDS ORDERED: CEFAZOLIN PMX 1GM/50ML 50 ML IVPB SCH (19:30)
[2021-03-03] MEDS ORDERED: INSULIN GLARGINE 100 UNITS/ML, PEN SQ-INSULIN SCH (21:00)
[2021-03-03] MEDS ORDERED: FINASTERIDE 5 MG TABLET PO SCH (21:00)
[2021-03-03] MEDS ORDERED: SODIUM CHLORIDE FLUSH 10ML SYR IVF SCH (21:00)
[2021-03-03] MEDS ORDERED: COLESTIPOL 1 GM TABLET PO SCH (21:00)
[2021-03-03] MEDS ORDERED: MAGNESIUM OXIDE 400 MG TABLET PO SCH (21:00)
[2021-03-03] MEDS ORDERED: TACROLIMUS 0.5 MG CAPSULE PO SCH ×2 (21:00)
[2021-03-03] MEDS ORDERED: URSODIOL 300 MG CAPSULE PO SCH ×2 (21:00)
[2021-03-03] MEDS ORDERED: ATORVASTATIN 20 MG TABLET PO SCH (21:00)
[2021-03-03] MEDS ORDERED: INSULIN LISPRO 100 UNITS/ML, PEN SQ-INSULIN SCH (21:00)
[2021-03-04] MEDS ORDERED: METOPROLOL TARTRATE 50 MG TAB PO SCH (06:00)
[2021-03-04] MEDS ORDERED: OMEPRAZOLE 20 MG CAPSULE.DR PO SCH (06:00)
[2021-03-04] MEDS ORDERED: DILTIAZEM 120 MG CAP.ER.24H PO SCH (09:00)
[2021-03-04] MEDS ORDERED: PREVAGEN PO SCH (09:00)
[2021-03-04] MEDS ORDERED: FUROSEMIDE 20 MG TABLET PO SCH (09:00)
[2021-03-04] MEDS ORDERED: CHOLECALCIFEROL 5,000u TAB PO SCH (09:00)
[2021-03-04] MEDS ORDERED: RESVERATROL 500 MG PO SCH (09:00)
== END 2021-03-03 20:15 | disposition left against medical advice (07) ==
LOC: OUT 10:55 → 4NE 18:06 → OUT 20:15
PROVIDERS: ATTEND Orthopaedic Surgery
DX: M25.311 Other instability, right shoulder (principal); M25.511 Pain in right shoulder; K21.9 Gastro-esophageal reflux disease without esophagitis; I25.2 Old myocardial infarction; I48.91 Unspecified atrial fibrillation; I10 Essential (primary) hypertension; E11.9 Type 2 diabetes mellitus without complications; E78.5 Hyperlipidemia, unspecified; Z79.4 Long term (current) use of insulin; Z20.822 Contact with and (suspected) exposure to COVID-19; Z79.899 Other long term (current) drug therapy; Z86.73 Personal history of transient ischemic attack (TIA), and cerebral infarction without residual deficits; Z79.82 Long term (current) use of aspirin; Z98.890 Other specified postprocedural states
CPT/HCPCS: 23430; 23472; 36415; 64415; 73030; 80053; 82947; 82962; 83036; 85025; 85610; 85730; 93005; C1713; C1776; J0690; J1100; J2405; J2704; J2710; J3010; J7120; U0003; U0005; G0378; J2250; J3370

== ENCOUNTER 2021-03-28 20:14 | Emergency (ER) | payer MEDICARE, BC ==
[~2021-03-28] VITALS: Ht 165.1 cm; Wt 79.6 kg
[~2021-03-28 20:14] MED LIST changes: -BUPIVACAINE LIPOSOME/PF 10ML INFIL ONE; +DILT120C80 PO
[2021-03-28 20:19] VITALS: BP 112/76
[2021-03-28 20:59] LABS: BASOPHILS % (AUTO) 1 % (0-1); EOSINOPHILS % (AUTO) 2 % (1-7); LYMPHOCYTES % (AUTO) 29 % (22-44); MEAN CORPUSCULAR HEMOGLOBIN 25.7 pg (27.5-34.5); MEAN CORPUSCULAR HGB CONC 31.9 g/dL (33.2-36.2); MEAN PLATELET VOLUME 6.7 fL (7.4-10.4); MONOCYTES % (AUTO) 11 % (2-9); NEUTROPHILS % (AUTO) 58 % (42-75); PLATELET COUNT 538 x10^3/uL (130-400); RED BLOOD COUNT 4.86 x10^6/uL (4.38-5.82); RED CELL DISTRIBUTION WIDTH 17.9 % (9.4-14.8)
[2021-03-28 21:10] LABS: ALANINE AMINOTRANSFERASE 18 U/L (12-78); ALBUMIN 3.4 g/dL (3.4-5.0); ANION GAP 10 mmol/L (5-15); CALCIUM 8.2 mg/dL (8.5-10.1); CHLORIDE 106 mmol/L (98-107); CREATININE 1.28 mg/dL (0.7-1.3)
[2021-03-28 21:12] LABS: ALKALINE PHOSPHATASE 147 U/L (45-117); TOTAL PROTEIN 7.7 g/dL (6.4-8.2)
--- NOTE | 2021-03-28 21:20 | NUR ---
triage BS 84 BS 120 at 2029 pt not in room, gown on bed.
--- NOTE | 2021-03-28 21:35 | NUR ---
lithopone charger notified of pt elopement
== END 2021-03-28 21:37 | disposition left against medical advice (07) ==
LOC: ED 20:38
DX: E11.649 Type 2 diabetes mellitus with hypoglycemia without coma (principal); I48.91 Unspecified atrial fibrillation; I10 Essential (primary) hypertension
CPT/HCPCS: 80053; 82962; 85025; 99283